=== PATIENT | male | born 1935 | race Caucasian/White ===

== ENCOUNTER 2017-08-05 09:20 | Inpatient (IN) | payer OTHER ==
[~2017-08-05] VITALS: Ht 167.6 cm; Wt 82.1 kg
--- NOTE | ~2017-08-05 | EKG ---
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 : 1935 Requested By: Glenda Patel Order Number: [id number] MD: Conrad Tomlinson Measurements Intervals [place] Rate: 103 P: 5 UT: 158 QRS: -23 QRSD: 101 T: 27 QT: 382 QTc: 500 Interpretive Statements Sinus tachycardia Nonspecific T wave abnormality Prolonged QT interval No previous ECG available for comparison Electronically Signed On 08-06-2017 14:33:08 SPA COORDINATOR by Conrad Tomlinson [email or web address] <ELECTRONICALLY SIGNED> By: Conrad Tomlinson MD, [facility] 08/06/17 1433 1154 1154 Conrad Tomlinson MD, [facility] /EPI
--- NOTE | ~2017-08-05 | EKG ---
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: : 1935 Requested By: Glenda Patel Order Number: [id number] MD: Conrad Tomlinson Measurements Intervals [place] Rate: 130 P: 16 NE: 136 QRS: -24 QRSD: 91 T: 13 QT: 310 QTc: 456 Interpretive Statements Sinus tachycardia Atrial premature complexes Borderline left axis deviation Nonspecific ST and T wave abnormality No previous ECG available for comparison Electronically Signed On 08-06-2017 14:29:02 LEAD BLENDER by Conrad Tomlinson [email or web address] <ELECTRONICALLY SIGNED> By: Conrad Tomlinson MD, [facility] 08/06/17 1429 3 3 Conrad Tomlinson MD, [facility] /EPI
--- NOTE | ~2017-08-05 | CATHLAB ---
[facility] [place] [address] INVASIVE PROCEDURE REPORT Name: SUSAN MELCHOR Room #: 358-P [facility] IN ..#: [id number] Admission: 08/05/17 Attend Phys: Anand Lassiter MD Discharge: Date of : 39 Date of Service: 08/10/17 1304 Report #: [id number] THIS REPORT FOR: //name// APPROVED REPORT Patient Details Patient Status: In-Patient Room #: The patient is a 82 year-old male Event Personnel Oral Turner Customer Care Consultant, Susana Pozo, Dereje Medeiros Penny, Wes RN Procedures Performed Art Access - R femoral artery* 66189 Initial Mod Sed Same Phys/QHP Gr5y [id number] Left Heart Cath w/or w/o Coronaries [id number] [facility] Hemostasis with Manual pressure Indication Syncope, Preoperative assessment for atrial myxoma excision Procedure Narrative The patient was brought urgently to the Cardiac Catheterization Laboratory and was prepped and draped in a sterile manner. The Right Groin^ was infiltrated with 1% Lidocaine subcutaneous anesthesia. A PINNACLE 4FR Sheath #[id number] sheath was inserted into the RFA^. Coronary angiography was performed using coronary diagnostic catheters. The right coronary system was accessed and visualized with a JR 4 catheter. The left coronary system was accessed and visualized with a JL 4 catheter. Hemostasis was obtained with manual pressure following sheath removal without any complications. The patient tolerated the procedure well and there were no complications associated with the procedure. There was no hematoma. Intraoperative Conscious Sedation Sedation start time: 10:57 Case end Time: 11:07 Versed 1.0 mg Fluoro Time: 2.03 minutes Dose: DAP 3156.60 cGycm2 456 mGy Contrast Type and Amount: Omnipaque 50 ml Coronary Angiography [facility] [place] [address] INVASIVE PROCEDURE REPORT Name: SUSAN MELCHOR Room #: 358-P [facility] IN ..#: [id number] Admission: 08/05/17 Attend Phys: Anand Lassiter MD Discharge: Date of : 37 Date of Service: 08/10/17 1304 Report #: [id number] The patient's coronary anatomy is right dominant. Diagnostic Cath Left Main Normal origin and caliber bifurcates into left anterior descending left circumflex free of significant high-grade disease LAD Small to moderate caliber type III vessel which courses in the anterior interventricular sulcus. In the proximal midportion there is an eccentric lesion that appears to be at least 75% stenotic. The LAD continues in the anterior interventricular call sulcus and a tortuous path terminating as a bifurcating vessel in the inferolateral apical region of the left ventricle Diagonal 1 Small-caliber vessel free of high-grade disease Circumflex Moderate caliber vessel of normal origin coursing in the AV groove posteriorly giving rise to a first and second lateral wall marginal branch. Terminates at the crux of the heart is a bifurcating small-caliber vessel it has luminal irregularities only. OM1 Small-caliber vessel with luminal irregularities in its course OM2 Small-caliber vessel with luminal irregularities in its course Right Coronary Moderate caliber to large caliber dominant vessel which has Oliver eccentric 30% plaque proximally. Then continues giving rise to a small RV marginal branch which is free of high-grade disease. The RCA proper continues posteriorly giving rise to a small to moderate caliber posterior descending artery and a small posterolateral branch. Only luminal irregularities are noted no high-grade obstructive lesions R PDA Small to moderate caliber vessel with luminal irregularities but no significant obstructive lesions noted Left Ventriculography Left Ventriculography was not performed. Hemodynamics The aortic pressure is 157/63 mmHg with a mean of 97 mmHg. Conclusion 1. Coronary artery disease, single vessel, involving the mid LAD 2. Normal [place] [address] INVASIVE PROCEDURE REPORT Name: SUSAN MELCHOR Room #: 358-P [facility] IN M.R.#: [id number] Admission: 08/05/17 Attend Phys: Anand Lassiter MD Discharge: Date of : 39 Date of Service: 08/10/17 1304 Report #: [id number] If the patient is to undergo excision of the myxoma then single vessel bypass to the LAD would be appropriate <ELECTRONICALLY SIGNED> By: Oral Turner MD 08/10/17 1304 1304 1304 Oral Turner MD /INF
--- NOTE | ~2017-08-05 | HC ---
[facility] [place] [address] CONSULTATION Name: SUSAN MELCHOR Room #: 358-P ADM IN M.R.#: [id number] Admission: 08/05/17 Attend Phys: Anand Lassiter MD Discharge: Date of : 37 Report #: [id number] THIS REPORT FOR: //name// CC: Enrico Ho TYPE OF REPORT: Infectious diseases consultation. REASON FOR CONSULTATION: I was asked to evaluate concerning E. coli bacteremia. HISTORY OF PRESENT ILLNESS: The patient is an 82-year-old rtw-Lukcqyl-exqyjtfx gentleman who transferred from [facility] with respiratory distress and chest pain. He has a history of stroke with right hemiparesis, longstanding with hypertension and chronic renal insufficiency. He had fallen over a week ago and was hospitalized at [facility]. I do not have the records from that hospitalization to review at this time. He was transferred to alf where he was there for several days and then presented on 08/05/2017 with the above symptoms. In the Emergency Room, he was hypoxic and tachycardic. CT scan of the chest identified basilar atelectasis and multiple PEs. His white count was elevated and blood cultures have revealed E. coli. Cultures were positive on the 2nd and again on the 4th. He has been on broad-spectrum antibiotic coverage. No documented fever. Complains of pain. Essentially all over, although he does note that he has a headache and abdominal discomfort. He was also found to have right lateral ankle and knee wounds. No purulent drainage. Bray catheter was placed and now has increased urine output. He also complains of right leg pain. Prior to his Bray catheter placement, he did have a bladder scan showing over 500 mL of retained urine. It is noted that when he fell, he injured his right arm and leg. REVIEW OF SYSTEMS: In addition to the above, he has had no cough or sputum production. He is on 1 liter of oxygen per nasal cannula. There has been no chills or sweats identified. No nausea, vomiting or diarrhea. He now has indwelling Bray catheter. He has no rashes or other decubiti noted. PAST MEDICAL HISTORY: Hypertension, hyperlipidemia, stroke with right-sided weakness, BPH, recent fall with rib fractures and herniorrhaphy. FAMILY HISTORY: Noncontributory. SOCIAL HISTORY: He is a past smoker with no significant alcohol intake. PHYSICAL EXAMINATION: VITAL SIGNS: He is afebrile and hemodynamically stable. GENERAL: He was alert and cooperative. He had fairly dense right-sided weakness, upper and lower extremities. SKIN: Had a small area of wound over the lateral aspect of his right knee and [address] [address] CONSULTATION Name: SUSAN MELCHOR Room #: 358-P [facility] IN .R.#: [id number] Admission: 08/05/17 Attend Phys: Anand Lassiter MD Discharge: Date of : 37 Report #: [id number] ankle. No surrounding cellulitis. HEENT: Unremarkable. NECK: Supple. LUNGS: Clear. HEART: Regular, without murmur. ABDOMEN: Soft. No definite mass or hepatosplenomegaly. Possible left CVA tenderness, although the patient was not consistent. There was a language barrier during the evaluation. External genitalia with indwelling Bray catheter. A 1+ edema in the right side arm and leg. LABORATORY STUDIES: Blood cultures positive for E. coli, resistant to quinolones and ampicillin, otherwise susceptible growth on 08/05/2017 and 08/07/2017. Urinalysis was unremarkable. Ultrasound of lower extremities was negative for DVT. Right upper extremity negative for DVT. CT scan of the chest showed several PEs and basilar atelectasis. Hemoglobin 9.1; platelet count 138,000 and white count was 20.4. Sodium 134, potassium 4.3, bicarbonate 21 and creatinine 1.6. IMPRESSION AND RECOMMENDATIONS: An 82-year-old with Escherichia coli bacteremia, high grade. I would be concerned about urinary tract source given his urinary outlet obstructive symptoms. Bray catheter was just placed yesterday. Other consideration would be biliary tract or a colon source. Doubt endocarditis, although with this high-grade bacteremia must also be concerned about such, would not typically be related to right-sided endocarditis. Unclear if he had central venous catheter at the time of his hospitalization at [facility]. This will need to be further evaluated. I did not find any evidence of thrombophlebitis on examination today. Infected aortic aneurysm of the abdomen would also be a consideration, although that would not typically be associated with pulmonary emboli. I would therefore recommend continuing antibiotic coverage with ceftriaxone. Image his abdomen further. Also, check echocardiogram. We will repeat his blood cultures, repeat his urinalysis and send off a urine culture and also check liver function test. <ELECTRONICALLY SIGNED> By: Matty Singh MD 08/09/17 0837 1724 2236 Matty Singh MD /nt
--- NOTE | ~2017-08-05 | HC ---
[facility] [place] [address] CONSULTATION Name: SUSAN MELCHOR Room #: 361-P [facility] IN M.R.#: [id number] Admission: 08/05/17 Attend Phys: Anand Lassiter MD Discharge: 08/23/17 Date of : 37 Report #: [id number] THIS REPORT FOR: //name// CC: Enrico Ho HISTORY OF PRESENT ILLNESS: The patient is an 82-year-old male. He apparently hospitalized a few days ago for a fall and abdominal pain. Subsequently noted to have 2 small pulmonary emboli in the right upper and lower lung in addition to rib fractures. Some encephalopathy ensued, felt to be due to sepsis and elevated lactate. I am asked to evaluate here currently because of a large right atrial mass which could represent a myxoma, tumor spread, clot. No history of any of this. There was a CT of the chest, which revealed emboli and there were no remarks made about the cardiac findings. There is bit of a language barrier here, but able to review the records and talk with the and the patient to some extent. Still having a fair amount of discomfort and dyspnea. He was treated with IV antibiotics and mental status has improved some on my understanding. He has been switched over to Pradaxa today, which I suspect would be appropriate. He has been on Lovenox. Would recommend anticoagulation for this myxomatous finding or this atrial mass depending on what the etiology of it is, either way would anticoagulate. Currently, he is on albuterol, Pradaxa, which was just initiated. Creatinine is 1.2. Levaquin IV, tamsulosin, potassium, piperacillin/tazobactam combo, fentanyl, oxycodone. PAST MEDICAL HISTORY: Apparently is positive for hypertension, hypercholesterolemia, but no previously documented coronary disease at least that I can get from the family. He does have the right rib fracture, right leg fracture previously, history of chronic renal disease, history of CVA with left-sided weakness, which was years ago, hernia. PAST SURGICAL HISTORY: No surgical history is obtained here. ALLERGIES: No known drug allergies. FAMILY HISTORY: According to the , there is not significant history of this. SOCIAL HISTORY: He is . His is present. No current alcohol or tobacco. He is retired. LABORATORY WORK: Creatinine 1.2, potassium 3.9, alkaline phosphatase 166. Troponins are negative. H and H is 8.1 and 24.1, white count 11.1, platelets 127. Vitamin B12 is high at 1296. MRSA is negative. CT of the abdomen and pelvis, suspect acute cholecystitis with mildly cholelithiasis. There is small amount of free fluid in the right pericolic gutter, bilateral small pleural effusions, moderate hiatal hernia, diverticulosis. There is widespread third [facility] [address] [place] [address] CONSULTATION Name: ERNST CHANGSUSAN Room #: 361-P DIS IN M.R.#: [id number] Admission: 08/05/17 Attend Phys: Anand Lassiter MD Discharge: 08/23/17 Date of : 37 Report #: [id number] spacing edema. Chest x-ray shows interstitial edema compatible with heart failure, left basilar infiltrate. PHYSICAL EXAMINATION: VITAL SIGNS: Blood pressure 148/80, pulse 70s. GENERAL: He is intermittently in right-sided discomfort which he waxes and wean significantly. HEENT: Eyes reveal xanthelasmas. Pharynx showed some dry mucous membranes. NECK: Shows preserved upstrokes without JVD or bruits. LUNGS: Prolonged expiratory phase, diminished in the right base. CARDIOVASCULAR: Distant heart tones, S1, S2. ABDOMEN: Diffusely tender, more tender in the right upper quadrant, slightly distended. EXTREMITIES: Reveal trace to 1+ edema. Distal pulses diminished. NEUROLOGIC: Nonfocal. SKIN: Warm and dry without xanthoma or ulcer. MUSCULOSKELETAL: Generalized arthritic changes. I did not ambulate him. ASSESSMENT: 1. 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 Other considerations could be clot and/or tumor spread (of unclear significance to this hospitalization). 2. Hypoxia with infiltrate. 3. Elevated lactate, possible sepsis. 4. Acute on chronic cholecystitis. 5. Hypertension. 6. Hypercholesterolemia. RECOMMENDATIONS AND PLAN: Discussed with Radiology, a gated cardiac CT with contrast may be able to visualize this atrial mass. 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 There is no history of this. Would continue with anticoagulation. At this point surgical eval of this gallbladder apparently is pending. Does not appear to be evidence of renal cell at least based on the tumor, based on the abdomen and pelvic CT scan, although significant edema and pericolic fluid is noted. We will discuss the above with Infectious Disease. In addition, we will continue to follow with you. Thank you for asking me to assist in the care of this patient. <ELECTRONICALLY SIGNED> By: Ottoniel Macias MD, FACC 08/29/17 1427 0953 1033 Ottoniel Macias MD, FACC /nt
--- NOTE | ~2017-08-05 | HC ---
[facility] [place] [address] CONSULTATION Name: SUSAN MELCHOR Room #: 358-P ADM IN M.R.#: [id number] Admission: 08/05/17 Attend Phys: Anand Lassiter MD Discharge: Date of : 37 Report #: [id number] THIS REPORT FOR: //name// CC: Enrico Ho DATE OF SERVICE: 08/05/2017 REFERRAL PHYSICIAN: Dr. Anand Lassiter. REASON FOR REFERRAL: Pulmonary embolus. HISTORY OF PRESENT ILLNESS: The patient is an 82-year-old male who presented to Emergency Room with an acute onset of chest pain, dyspnea. He was found to have pulmonary embolus. A pulmonary consultation was requested. The patient does not speak German. He speaks Occitan. According to records, he was recently hospitalized at [facility] several days ago following a fall in the bathtub. He sustained an injury to his right lower extremity. He was then discharged to [facility]. He was there just 2 days. On the day of admission, the patient had noticed acute onset of chest discomfort, shortness of breath. CT chest preliminary finding shows small pulmonary embolus. Otherwise, his dyspnea is stable. Denies any chest pain. Does have pain in the right lower extremity. The rest of the history is somewhat limited given language barrier. PAST MEDICAL HISTORY: Notable for an event as mentioned above, recent hospitalization following a fall at [facility], hypertension, hyperlipidemia, benign prostatic hypertrophy, a recent fall sustaining right rib fracture, right leg fracture, history of chronic renal disease, history of CVA with left-sided weakness 40 years ago. He has hernia. PAST SURGICAL HISTORY: Unknown. ALLERGIES: None noted. MEDICATIONS: From home are incomplete. FAMILY HISTORY: Unknown. [facility] [address] [place] [address] CONSULTATION Name: SUSAN MELCHOR Room #: 358-P [facility] IN [facility]#: [id number] Admission: 08/05/17 Attend Phys: Anand Lassiter MD Discharge: Date of : 37 Report #: [id number] SOCIAL HISTORY: He is . He had been living with his until recently. Has smoked in the past, but quit more than 10 years ago. Denies any alcohol use. He has children, lives in town. PHYSICAL EXAMINATION: GENERAL: He is awake, in no apparent distress. VITAL SIGNS: Temperature is 101.1 degrees Fahrenheit, pulse is 100, respiratory rate is 18, blood pressure is 120/67 mmHg and saturation 96%. HEENT: Normocephalic, atraumatic. NECK: Supple, without any lymphadenopathy or thyromegaly. CHEST: Breath sounds are fair due to poor effort, otherwise no obvious wheezes or rales. CARDIOVASCULAR: Normal S1, S2. No murmur or gallop. There is no JVD. There is no carotid bruit. Pulses are 2+/4+ bilaterally. ABDOMEN: Soft, nontender, no organomegaly or masses felt. GENITOURINARY: Deferred. RECTAL: Deferred. EXTREMITIES: No cyanosis or clubbing. Right lower extremity revealed bandage around the knee. 1+ edema noted on the right side. No edema noted in the left leg. NEUROLOGIC: Grossly intact. LABORATORY DATA: CT chest angiogram shows small pulmonary emboli seen in the right upper lobe, right lower lobe, small emboli seen in both bases. There is a 6.5 mm nodule seen in the right upper lobe. It is noncalcified. D-dimer was 10.1. Influenza A and B was negative. Venous Doppler of the ultrasound shows no evidence of DVT involving both lower extremities. Electrolytes revealed a sodium 138, potassium 3.7, chloride 103, CO2 of 21, BUN is 24, creatinine is 1.6. WBC 11,400, hemoglobin is 10.6, platelets are normal, no evidence of bandemia. Arterial blood gas revealed pH 7.44, pCO2 of 27, pO2 100. IMPRESSION: 1. Small multiple pulmonary embolus involving the right upper lobe, right lower lobe and both lower lobes. The patient does have risk factors with recent hospitalization along with fall. He has sustained fractures including right rib and apparently the right leg. The patient will be a candidate for anticoagulation for at least 6 months or longer. 2. Acute hypoxic respiratory failure. 3. Febrile illness. Etiology is unclear. It may be related to atelectasis, possible early infectious process including possible pneumonia. 4. Renal insufficiency, has a history of chronic kidney disease, not certain of the baseline creatinine. Need to follow renal function closely. 5. Elevated D-dimer due to venous thromboembolic disease. [address] [address] CONSULTATION Name: ERNST CHARLENESUSAN Room #: 358-P ADM IN ..#: [id number] Admission: 08/05/17 Attend Phys: Anand Lassiter MD Discharge: Date of : 37 Report #: [id number] 6. History of cerebrovascular accident approximately 4 years ago with right-sided weakness, now with fall sustaining right rib and right leg fracture. The patient may need rehab and possibly ongoing physical therapy. RECOMMENDATION: Agree with plans with anticoagulation. Heparin therapy for now. Once stable, we will consider switching to oral agent either Coumadin or Pradaxa. Duration therapy will be for at least 6 months, then reassess for whether he needs prolonged therapy or not based on his risk factors. I am not certain if the patient has pneumonia, but I think it is reasonable to start broad spectrum antibiotics. Follow up cultures, chest x-rays. If the patient is stable and afebrile along with normal leukocyte count, could consider discontinuing antibiotics. Thank you for this consultation. <ELECTRONICALLY SIGNED> By: Aaron Stinson MD 08/06/17 1737 1540 0038 Aaron Stinson MD /nt
--- NOTE | ~2017-08-05 | 2DMMODE ---
[facility] [address] [place] [address] 2 D/M-MODE ECHOCARDIOGRAM Name: SUSAN MELCHOR Room #: 358-P ADM IN M.R.#: [id number] Admission: 08/05/17 Attend Phys: Anand Lassiter MD Discharge: Date of : 39 Date of Service: 08/09/17 0926 Report #: [id number] THIS REPORT FOR: //name// APPROVED REPORT Study performed: 08/09/2017 08:24:50 EXAM: Comprehensive 2D, Doppler, and color-flow Echocardiogram Patient Location: Bedside Room #: 358 Status: routine BSA: 1.92 HR: 70 bpm BP: 139/70 mmHg Rhythm: NSR/Irregular Other Information Study Quality: Adequate Technically limited study due to lung artifact, body habitus. Indications Bacteremia, pulmonary embolism 2D Dimensions LVEF(%): 57.83 (>50%) IVSd: 9.58 (7-11mm) LVOT Diam: 22.29 (18-24mm) LVDd: 48.56 mm PWd: 10.57 (7-11mm) LVDs: 33.74 (25-40mm) Aortic Root: 41.21 mm [place]'s LVEF: 57.83 % Aortic Valve AoV Peak Chaz.: 2.29 m/s AO Peak Gr.: 20.99 mmHg LVOT Max P.72 mmHg LVOT Max V: 0.82 m/s FIDEL Vmax: 1.40 cm2 Mitral Valve E/A Ratio: 0.5 MV Decel. Time: 292.83 ms MV E Max Chaz.: 0.41 m/s MV A Chaz.: 0.80 m/s MV PHT: 84.92 ms [facility] [address] [place] [address] 2 D/M-MODE ECHOCARDIOGRAM Name: SUSAN MELCHOR Room #: 358-[facility] IN [facility].#: [id number] Admission: 08/05/17 Attend Phys: Anand Lassiter MD Discharge: Date of : 39 Date of Service: 08/09/17 0926 Report #: [id number] IVRT: 87.66 ms Pulmonary Vein P Vein S: 0.82 m/s P Vein A: 0.36 m/s P Vein D: 0.51 m/s P Vein A Dur.: 106.1 msec P Vein S/D Ratio: 1.61 Tricuspid Valve TR Peak Chaz.: 2.12 m/s TR Peak Gr.: 17.97 mmHg Left Ventricle The left ventricle is normal size. Regional wall motion is not well visualized but grossly normal. There is normal left ventricular wall thickness. Left ventricular systolic function is normal. LVEF is 55%. Mild diastolic dysfunction is present (impaired relaxation pattern). Right Ventricle The right ventricle is normal size. The right ventricular systolic function is normal. Atria Left atrium is mildly dilated. The right atrium size is normal. Large mass occupying most of right atrium, prolapsing across tricuspid annulus with cardiac cycle. Diffential considerations include right atrial myxoma, thrombus, or tumor (4.1cm x 5.8cm) Aortic Valve Aortic valve is calcified. Trace to mild aortic regurgitation. Mild aortic stenosis. Peak pressure gradient of 24mmHg and a mean of 14mmHg. Mitral Valve Mild mitral annular calcification. Trace mitral regurgitation. No evidence of mitral valve stenosis. Tricuspid Valve The tricuspid valve is normal in structure. Trace tricuspid regurgitation. Estimated PAP is 18mmHg plus the right atrial pressure. Pulmonic Valve Pulmonic valve is not well visualized. Great Vessels [facility] [address] [place] [address] 2 D/M-MODE ECHOCARDIOGRAM Name: SUSAN MELCHOR Room #: 358-P [facility] IN [facility].#: [id number] Admission: 08/05/17 Attend Phys: Anand Lassiter MD Discharge: Date of : 39 Date of Service: 08/09/17 0926 Report #: [id number] Aortic root is mildly dilated. Ascending aorta is not well visualized. IVC is not well visualized. Pericardium There is no pericardial effusion. Critical Notification Critical Value: Yes Physician Notified Date: 08/09/2017 Time: 09:25 <Conclusion> Left ventricular systolic function is normal. Regional wall motion is not well visualized but grossly normal. LVEF is 55%. Mild diastolic dysfunction Large mass occupying most of right atrium, prolapsing across tricuspid annulus with cardiac cycle. Diffential considerations include right atrial myxoma, thrombus, or tumor (4.1cm x 5.8cm) Aortic valve is calcified. Trace to mild aortic regurgitation. Mild aortic stenosis. Peak pressure gradient of 24mmHg and a mean of 14mmHg. Mild mitral annular calcification. Trace mitral regurgitation. There is no pericardial effusion. <ELECTRONICALLY SIGNED> By: Conrad Tomlinson MD, FACC 08/09/17925 5 5 Conrad Tomlinson MD, FACC /INF
--- NOTE | ~2017-08-05 | TEE ---
[facility] [address] TRANSESOPHAGEAL ECHOCARDIOGRAM Name: ERNST CHANGSUSAN Room #: 358-P [facility] IN .R.#: [id number] Admission: 08/05/17 Attend Phys: Anand Lassiter MD Discharge: Date of : 39 Date of Service: 08/10/17 0923 Report #: [id number] THIS REPORT FOR: //name// APPROVED REPORT Study performed: 08/10/2017 07:50:21 EXAM: Comprehensive 2D, Doppler, and color-flow Echocardiogram Patient Location: [facility] Room #: 358 BSA: 1.92 HR: 75 bpm BP: 139/70 mmHg Rhythm: NSR Other Information Study Quality: Good Indications Right atrial myxoma. Pulmonary embolism, bacteremia Echo Enhancing Agent Indication: Rule out Shunt Agent(s) / Amount(s) Used: Agitated Saline 6 cc Procedure After obtaining informed consent, patient underwent transesophageal echo in the [employer]. Type of Sedation : Conscious Sedation Sedation was administered by Susan Ye RN. Sedation was achieved intravenously with: Versed (3) Fentanyl (25) Transesophageal probe was inserted and advanced into esophagus without difficulty by Conrad Tomlinson MD. The JONES was performed without complications. Throughout the procedure, the blood pressure, pulse oximetry, cardiac rhythm, and rate were monitored. The patient tolerated the procedure without adverse effects. Recovery from conscious sedation was uneventful and vital signs were stable. Left Ventricle The left ventricle is normal size. There is normal left ventricular wall thickness. Left ventricular systolic function is normal. LVEF is [facility] [address] [place] [address] TRANSESOPHAGEAL ECHOCARDIOGRAM Name: SUSAN MELCHOR Room #: 358-P [facility] IN [facility].#: [id number] Admission: 08/05/17 Attend Phys: Anand Lassiter MD Discharge: Date of : 39 Date of Service: 08/10/17 0923 Report #: [id number] 55%. Right Ventricle The right ventricle is normal size. The right ventricular systolic function is normal. Atria Left atrium is mildly dilated. No masses or clots in left atrium or left atrial appendage. Right to left shunting noted with contrast bubble injection consistent with small PFO. The right atrium size is normal. 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 SVC and IVC appear normal. Aortic Valve Aortic valve is calcified. Probably bicuspid valve. Mild aortic regurgitation. Mild aortic stenosis. Mitral Valve The mitral valve is normal in structure. Trace to mild mitral regurgitation. Tricuspid Valve The tricuspid valve is normal in structure. Trace tricuspid regurgitation. Pulmonic Valve The pulmonary valve is normal in structure. Trace pulmonic regurgitation. Great Vessels The aortic root is normal in size. Mild atherosclerosis IVC is normal in size and collapses >50% with inspiration. Pericardium There is no pericardial effusion. Critical Notification Physician Notified <Conclusion> Left ventricular systolic function is normal. LVEF is 55%. Left atrium is mildly dilated. The right atrium size is normal. 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 SVC and IVC appear normal. Right to left shunting noted with contrast bubble injection consistent with small PFO. Aortic valve is calcified. Probably bicuspid valve. Mild aortic regurgitation. Mild aortic stenosis. The mitral valve is normal in structure. Trace to mild mitral regurgitation. There is no pericardial effusion. Mild aortic atherosclerosis <ELECTRONICALLY SIGNED> By: Conrad Tomlinson MD, [facility] 08/10/17922 2 2 Conrad Tomlinson MD, FACC /INF
--- NOTE | ~2017-08-05 | HC ---
[facility] [place] [address] CONSULTATION Name: ERNST CHANGSUSAN Room #: 361-P [facility] IN M.R.#: [id number] Admission: 08/05/17 Attend Phys: Anand Lassiter MD Discharge: 08/23/17 Date of : 39 Report #: [id number] THIS REPORT FOR: //name// CC: Enrico Ho DATE OF SERVICE: 08/18/2017 REQUESTING PHYSICIAN: Dr. Lassiter. CHIEF COMPLAINT: Atrial myxoma. HISTORY OF PRESENT ILLNESS: The patient is an 82-year-old male who presented to [facility] on 08/05/2017. The patient has had several different factors for his admission including sepsis, which is related to E. coli from bacteremia, possibly related to acute cholecystitis. The patient has undergone a percutaneous cholecystostomy tube placement by IR. Additionally, he has a right atrial myxoma. This was seen on JONES. Cardiothoracic surgery was consulted and they have decided to hold on the procedure as he is currently a poor surgical candidate due to his current functional capacity, they were to see him as an outpatient for further evaluation. The patient additionally had acute blood loss secondary to upper GI bleed due to his anticoagulation. He was changed to Protonix just recently b.i.d. He had a transfusion of 1 unit packed red blood cells, also found to have acute pulmonary embolism, which caused him to be on the anticoagulation. Additionally, he has had delirium and acute renal failure. Acute renal failure has improved. He is status post previous CVA, but this was approximately 40 years ago. The patient and spouse are Scottish speaking only. I discussed their care through the use of [employer]. The patient is currently without significant amounts of pain, although he does have some pain in his mid epigastric area. He denies significant dyspnea and appears to be calm and at rest at this time. PAST MEDICAL HISTORY: Significant for pulmonary embolism, right atrial myxoma, history of CVA with right partial hemiparesis, hypertension, hyperlipidemia, BPH, history of cigarette smoking approximately 40 years ago. SOCIAL HISTORY: Former smoker of cigars previously. No longer smoking, present with his spouse, daughter was able to be reached as well. MEDICATIONS AT HOME: Lipitor 20 mg daily, doxepin 10 mg at bedtime, Flomax 0.4 mg daily, ibuprofen, lidocaine, metoprolol 50 mg b.i.d. and MiraLax. ALLERGIES: No known drug allergies. [address] [address] CONSULTATION Name: ERNST CHANGSUSAN Room #: 361-P [facility] IN [facility].#: [id number] Admission: 08/05/17 Attend Phys: Anand Lassiter MD Discharge: 08/23/17 Date of : 39 Report #: [id number] CODE STATUS: Full code currently. FAMILY HISTORY: Noncontributory. PAST SURGICAL HISTORY: Unknown, not reviewed at this time. REVIEW OF SYSTEMS: GENERAL: Denies any significant weight loss, including weight gain or weight loss. Does ____ report fatigue. HEENT: Denies any visual changes. CARDIOVASCULAR: He does report some mild epigastric pain, but not significant chest pain, does have some mild edema. RESPIRATORY: Does report shortness of breath and occasional cough. ABDOMEN: Does report some abdominal pain as previously noted, does have a history of constipation. EXTREMITIES: Reports diffuse weakness. PHYSICAL EXAMINATION: VITAL SIGNS: Temperature 36.6, pulse 64, respirations 20, blood pressure 154/67, pulse ox 100%. GENERAL: He is alert, oriented to person, place at least. HEENT: No scleral icterus, no conjunctival injection. CARDIOVASCULAR: Regular rate and rhythm without murmur. LUNGS: Appear to be clear to auscultation at this time. ABDOMEN: He has diffuse tenderness to palpation, but mild. Does have diminished bowel sounds. LABORATORY DATA: Include hemoglobin 7.5, white blood cells 6.5, platelets 309, creatinine 0.7. ASSESSMENT AND PLAN: 1. Right atrial myxoma. The patient is not currently an excellent surgical candidate, though he may have improvement in the future. They are planning on pursuing mcc care. I have discussed this versus other additional options including palliative care options with both he and his spouse and his daughter. They are currently pursuing mcc at this time, but they are considering this. I did discuss the risk of surgery despite improvement in his functional status, considering his overall medical condition and the previous comorbidities. 2. Pulmonary embolism. Again, this coupled with his acute GI bleed, it contributes to the overall severity of his condition. He may benefit from IVC filter if they are pursuing maximal aggressive care. 3. Gastrointestinal bleed. Again, this is preventing patient from being on full anticoagulation, which leads him to risk of pulmonary embolism. Overall, this leads to a relatively poor prognosis, though if he has a potential recovery, as I discussed with him and his family, this still could be a very [facility] [address] [place] [place] [address] CONSULTATION Name: SUSAN MELCHOR Room #: 361-P [facility] IN M.R.#: [id number] Admission: 08/05/17 Attend Phys: Anand Lassiter MD Discharge: 08/23/17 Date of : 39 Report #: [id number] with regards to any recovery. 4. Escherichia coli bacteremia. Again, this is due to cholecystitis, status post cholecystostomy tube. Again, this overall contributes to his likelihood of being a good surgical candidate in the future. At this time, pursuing mcc to maintain a full code status, but they are considering these different interventions. I will go ahead and sign off at this point as I have explained these options to the family. Please reconsult or call me for any questions regarding this patient's care and if I can be of any further assistance. <ELECTRONICALLY SIGNED> By: Rogelio Ortiz DO 09/16/17 [id number] Rogelio Ortiz DO /nt
[2017-08-05 09:22] VITALS: BP 149/85
[2017-08-05 09:35] LABS: ABSOLUTE NEUTROPHILS 10.4 thou/uL (1.4-8.2); BASOPHILS 0.4 % (0.0-2.0); EOSINOPHILS 0.1 % (0.0-3.0); HEMATOCRIT 32.1 % (42.0-52.0); HEMOGLOBIN 10.6 gm/dL (14.0-18.0); LYMPHOCYTES 6.9 % (24.0-44.0); MCH 28.5 pg (26.0-34.0); MCHC 33.1 g/dL (28.0-37.0); MCV 86.2 fL (80.0-100.0); MONOCYTES 1.3 % (1.0-8.0); PLATELET COUNT 265 thou/uL (150-400); POLYS 91.3 % (36.0-66.0); RBC 3.73 mil/uL (4.50-6.00); WBC 11.4 thou/uL (4.0-11.0)
[2017-08-05 09:41] LABS: ANION GAP 14 mmol/L (7-16); BUN 24 mg/dL (7-18); CALCIUM 8.8 mg/dL (8.5-10.1); CHLORIDE 103 mmol/L (98-107); CO2 21 mmol/L (21-32); CREATININE 1.6 mg/dL (0.7-1.3); GLUCOSE 128 mg/dL (74-106); POTASSIUM 3.7 mmol/L (3.5-5.1); SODIUM 138 mmol/L (136-145)
[2017-08-05 09:42] LABS: BE(vivo) -4.7 mmol/L (-2 to +3); HCO3 18.3 mmol/L (22.0-26.0); PCO2 27.4 mmHg (35.0-45.0); PO2 448.5 mmHg (80.0-100.0); pH 7.442 (7.360-7.450); sO2 99.9 % (92.0-98.0)
[2017-08-05 09:49] LABS: TROPONIN-I < 0.04 ng/mL (<0.06)
[2017-08-05 11:56] LABS: APTT 30.6 Seconds (24.5-32.8); INR 1.2; PROTIME 12.6 Seconds (9.3-11.4)
[2017-08-05 12:56] VITALS: BP 121/67
[2017-08-05 13:26] VITALS: BP 150/74
[2017-08-05] MEDS ORDERED: COLACE100 MG PO (17:38)
[2017-08-05] MEDS ORDERED: LIPITOR 20 MG T20 M1 PO (17:38)
[2017-08-05] MEDS ORDERED: FLOMAX0.4 MG PO (17:41)
[2017-08-05] MEDS ORDERED: DOXEPIN 10 MG C10 M1 PO (17:41)
[2017-08-05] MEDS ORDERED: LIDODERM1 EACH TOP (17:42)
[2017-08-05] MEDS ORDERED: IBUPROFEN 600600 M1 PO (17:42)
[2017-08-05] MEDS ORDERED: MIRALAX17 GM PO (17:43)
[2017-08-05] MEDS ORDERED: LOPRESSOR50 PO (17:43)
[2017-08-05 19:13] VITALS: BP 117/62
[2017-08-06 00:03] VITALS: BP 142/45
[2017-08-06 03:30] VITALS: BP 166/82
[2017-08-06 05:16] LABS: HEMATOCRIT 28.3 % (42.0-52.0); HEMOGLOBIN 9.5 gm/dL (14.0-18.0); MCH 28.7 pg (26.0-34.0); MCHC 33.5 g/dL (28.0-37.0); MCV 85.6 fL (80.0-100.0); RBC 3.31 mil/uL (4.50-6.00); RDW 16.5 % (10.5-14.5); WBC 8.8 thou/uL (4.0-11.0)
[2017-08-06 05:24] LABS: CALCIUM 7.9 mg/dL (8.5-10.1); CREATININE 1.3 mg/dL (0.7-1.3); POTASSIUM 3.2 mmol/L (3.5-5.1)
[2017-08-06 07:34] VITALS: BP 104/48
[2017-08-06 11:47] VITALS: BP 101/57
[2017-08-06 15:16] VITALS: BP 119/79
[2017-08-06 20:00] VITALS: BP 97/69
[2017-08-07 03:30] VITALS: BP 123/61
[2017-08-07 04:07] LABS: CALCIUM 7.7 mg/dL (8.5-10.1); CREATININE 1.8 mg/dL (0.7-1.3); POTASSIUM 4.3 mmol/L (3.5-5.1)
[2017-08-07 05:18] LABS: HEMATOCRIT 25.2 % (42.0-52.0); HEMOGLOBIN 8.5 gm/dL (14.0-18.0); MCH 28.3 pg (26.0-34.0); MCHC 33.6 g/dL (28.0-37.0); MCV 84.4 fL (80.0-100.0); RBC 2.99 mil/uL (4.50-6.00); RDW 16.2 % (10.5-14.5)
[2017-08-07 06:44] LABS: URINE BILIRUBIN 2+ (Negative); URINE BLOOD NEGATIVE (Negative); URINE CLARITY SL CLOUDY; URINE COLOR BROWN; URINE GLUCOSE-RANDOM* NEGATIVE (Negative); URINE KETONES TRACE (Negative); URINE LEUKOCYTES NEGATIVE (Negative); URINE NITRITE NEGATIVE (Negative); URINE PROTEIN (DIPSTICK) 1+ (Negative); URINE SPECIFIC GRAVITY >= 1.030 (1.005-1.035)
[2017-08-07 06:47] LABS: ICTOTEST (BILI CONFIRMATORY) Positive (Negative)
[2017-08-07 06:54] LABS: AMORPHOUS URATES Moderate /LPF (None Seen); COARSE GRANULAR CASTS 0-3 Few /LPF (None Seen); SQUAMOUS 4-10 Moderate /LPF (0-3)
[2017-08-07 06:55] LABS: BACTERIA 1-9 Few /HPF (None Seen); URINE RBC 0-2 Rare /HPF (0-2); URINE WBC 0-5 Rare /HPF (0-5)
[2017-08-07 07:49] VITALS: BP 134/69
[2017-08-07 11:04] VITALS: BP 127/63
[2017-08-07 15:26] VITALS: BP 143/84
[2017-08-07 20:00] VITALS: BP 137/78
[2017-08-07 23:35] VITALS: BP 146/80
[2017-08-08 04:00] VITALS: BP 151/80
[2017-08-08 06:56] LABS: HEMATOCRIT 27.1 % (42.0-52.0); HEMOGLOBIN 9.1 gm/dL (14.0-18.0); MCH 28.2 pg (26.0-34.0); MCHC 33.5 g/dL (28.0-37.0); MCV 84.1 fL (80.0-100.0); RBC 3.23 mil/uL (4.50-6.00); RDW 16.9 % (10.5-14.5); WBC 20.4 thou/uL (4.0-11.0)
[2017-08-08 07:02] LABS: CALCIUM 7.4 mg/dL (8.5-10.1); CREATININE 1.6 mg/dL (0.7-1.3); POTASSIUM 4.3 mmol/L (3.5-5.1)
[2017-08-08 08:19] VITALS: BP 111/61
[2017-08-08 13:19] VITALS: BP 137/74
[2017-08-08 16:38] VITALS: BP 132/75
[2017-08-08 19:01] LABS: URINE BILIRUBIN NEGATIVE (Negative); URINE BLOOD 1+ (Negative); URINE CLARITY CLEAR; URINE COLOR YELLOW; URINE GLUCOSE-RANDOM* NEGATIVE (Negative); URINE KETONES NEGATIVE (Negative); URINE LEUKOCYTES NEGATIVE (Negative); URINE NITRITE NEGATIVE (Negative); URINE PROTEIN (DIPSTICK) NEGATIVE (Negative)
[2017-08-08 19:07] LABS: BACTERIA 1-9 Few /HPF (None Seen); CASTS None Seen /LPF (None Seen); CRYSTALS None Seen /LPF (None Seen); SQUAMOUS None Seen /LPF (0-3); URINE RBC 3-10 Few /HPF (0-2); URINE WBC 0-5 Rare /HPF (0-5)
[2017-08-08 19:20] VITALS: BP 129/69
[2017-08-09 03:50] VITALS: BP 139/70
[2017-08-09 06:25] LABS: HEMATOCRIT 24.4 % (42.0-52.0); HEMOGLOBIN 8.1 gm/dL (14.0-18.0); MCH 28.1 pg (26.0-34.0); MCHC 33.3 g/dL (28.0-37.0); MCV 84.2 fL (80.0-100.0); PLATELET COUNT 127 thou/uL (150-400); RDW 16.6 % (10.5-14.5); WBC 11.1 thou/uL (4.0-11.0)
[2017-08-09 06:45] LABS: ALBUMIN 1.5 g/dL (3.4-5.0); CALCIUM 7.2 mg/dL (8.5-10.1); CREATININE 1.2 mg/dL (0.7-1.3); POTASSIUM 3.9 mmol/L (3.5-5.1); TOTAL BILIRUBIN 0.7 mg/dL (<0.1-1.0); TOTAL PROTEIN 4.9 g/dL (6.4-8.2)
[2017-08-09 07:34] LABS: METAMYELOCYTES 1 %
[2017-08-09 07:35] LABS: ANISOCYTOSIS 1+
[2017-08-09 07:36] LABS: MICROCYTES 1+; OVALOCYTES FEW
[2017-08-09 08:27] VITALS: BP 148/80
[2017-08-09 17:41] VITALS: BP 140/82
[2017-08-09 20:00] VITALS: BP 138/71
[2017-08-10 04:00] VITALS: BP 146/77
[2017-08-10 06:13] LABS: HEMATOCRIT 21.5 % (42.0-52.0); HEMOGLOBIN 7.1 gm/dL (14.0-18.0); MCH 27.9 pg (26.0-34.0); MCHC 33.2 g/dL (28.0-37.0); RBC 2.56 mil/uL (4.50-6.00); RDW 16.4 % (10.5-14.5); WBC 13.4 thou/uL (4.0-11.0)
[2017-08-10 06:35] LABS: CALCIUM 7.2 mg/dL (8.5-10.1); CREATININE 0.9 mg/dL (0.7-1.3); POTASSIUM 3.4 mmol/L (3.5-5.1)
[2017-08-10 14:19] LABS: HEMATOCRIT 21.7 % (42.0-52.0); HEMOGLOBIN 7.2 gm/dL (14.0-18.0); MCH 27.8 pg (26.0-34.0); MCV 84.3 fL (80.0-100.0); RBC 2.58 mil/uL (4.50-6.00); RDW 16.3 % (10.5-14.5); WBC 18.4 thou/uL (4.0-11.0)
[2017-08-10 19:02] VITALS: BP 141/73
[2017-08-11 04:13] VITALS: BP 141/66
[2017-08-11 06:11] LABS: RBC 2.44 mil/uL (4.50-6.00)
[2017-08-11 06:12] LABS: HEMATOCRIT 20.7 % (42.0-52.0); HEMOGLOBIN 6.9 gm/dL (14.0-18.0); MCH 28.2 pg (26.0-34.0); MCHC 33.1 g/dL (28.0-37.0); RDW 16.9 % (10.5-14.5); WBC 17.9 thou/uL (4.0-11.0)
[2017-08-11 06:21] LABS: CALCIUM 7.2 mg/dL (8.5-10.1); CREATININE 0.9 mg/dL (0.7-1.3); POTASSIUM 3.4 mmol/L (3.5-5.1)
[2017-08-11 06:23] LABS: INR 1.2
[2017-08-11 06:32] LABS: APTT 48.8 Seconds (24.5-32.8)
[2017-08-11 08:31] VITALS: BP 122/64
[2017-08-11 08:54] LABS: ALBUMIN 1.4 g/dL (3.4-5.0); DIRECT BILIRUBIN 0.3 mg/dL (<0.1-0.3); TOTAL BILIRUBIN 0.6 mg/dL (<0.1-1.0); TOTAL PROTEIN 4.6 g/dL (6.4-8.2)
[2017-08-11 09:08] LABS: HEMATOCRIT 20.6 % (42.0-52.0); HEMOGLOBIN 6.9 gm/dL (14.0-18.0)
[2017-08-11 11:01] VITALS: BP 122/64
[2017-08-11 12:03] VITALS: BP 148/71
[2017-08-11 18:45] LABS: HEMATOCRIT 23.5 % (42.0-52.0); HEMOGLOBIN 7.9 gm/dL (14.0-18.0)
[2017-08-11 20:00] VITALS: BP 136/82
[2017-08-12 04:00] VITALS: BP 129/70
[2017-08-12 07:35] VITALS: BP 142/73
[2017-08-12 09:03] LABS: HEMATOCRIT 23.2 % (42.0-52.0); HEMOGLOBIN 7.7 gm/dL (14.0-18.0); MCH 28.5 pg (26.0-34.0); MCHC 33.1 g/dL (28.0-37.0); MCV 85.9 fL (80.0-100.0); RBC 2.7 mil/uL (4.50-6.00); RDW 16.3 % (10.5-14.5)
[2017-08-12 10:41] LABS: CALCIUM 7.5 mg/dL (8.5-10.1); CREATININE 0.8 mg/dL (0.7-1.3); POTASSIUM 3.7 mmol/L (3.5-5.1)
[2017-08-12 16:05] VITALS: BP 212/93
[2017-08-12 19:20] VITALS: BP 168/82
[2017-08-13] VITALS: BP 153/84
[2017-08-13 04:35] VITALS: BP 188/92
[2017-08-13 05:31] LABS: HEMATOCRIT 21.8 % (42.0-52.0); HEMOGLOBIN 7.2 gm/dL (14.0-18.0); MCH 28.6 pg (26.0-34.0); MCHC 33.3 g/dL (28.0-37.0); MCV 85.7 fL (80.0-100.0); RBC 2.54 mil/uL (4.50-6.00); RDW 16.9 % (10.5-14.5)
[2017-08-13 08:28] VITALS: BP 132/77
[2017-08-13 11:38] VITALS: BP 123/67
[2017-08-13 15:42] VITALS: BP 133/68
[2017-08-13 19:30] VITALS: BP 139/77
[2017-08-14 03:30] VITALS: BP 165/84
[2017-08-14 16:18] VITALS: BP 139/64
[2017-08-14 20:00] VITALS: BP 157/79
[2017-08-15 03:10] VITALS: BP 145/77
[2017-08-15 07:21] VITALS: BP 144/68
[2017-08-15 10:32] LABS: HEMATOCRIT 21.8 % (42.0-52.0); HEMOGLOBIN 7.4 gm/dL (14.0-18.0); MCHC 33.9 g/dL (28.0-37.0); MCV 85.7 fL (80.0-100.0); RBC 2.55 mil/uL (4.50-6.00); WBC 8.4 thou/uL (4.0-11.0)
[2017-08-15 11:20] VITALS: BP 158/73
[2017-08-15 15:52] VITALS: BP 164/69
[2017-08-15 20:00] VITALS: BP 170/81
[2017-08-16 04:00] VITALS: BP 146/73
[2017-08-16 06:20] LABS: HEMATOCRIT 22.9 % (42.0-52.0); HEMOGLOBIN 7.6 gm/dL (14.0-18.0); MCH 28.5 pg (26.0-34.0); MCHC 33.2 g/dL (28.0-37.0); MCV 85.9 fL (80.0-100.0); RBC 2.67 mil/uL (4.50-6.00); WBC 8.3 thou/uL (4.0-11.0)
[2017-08-16 08:15] VITALS: BP 135/76
[2017-08-16 16:13] VITALS: BP 167/73
[2017-08-16 20:00] VITALS: BP 158/78
[2017-08-17 04:00] VITALS: BP 144/67
[2017-08-17 07:51] VITALS: BP 146/57
[2017-08-17 10:47] LABS: HEMOGLOBIN 8.2 gm/dL (14.0-18.0); MCH 28.8 pg (26.0-34.0); MCV 87.5 fL (80.0-100.0); RBC 2.85 mil/uL (4.50-6.00); WBC 7.7 thou/uL (4.0-11.0)
[2017-08-17 15:56] VITALS: BP 170/85
[2017-08-18 04:02] VITALS: BP 131/62
[2017-08-18 05:34] LABS: HEMATOCRIT 22.3 % (42.0-52.0); HEMOGLOBIN 7.5 gm/dL (14.0-18.0); MCHC 33.8 g/dL (28.0-37.0); MCV 85.9 fL (80.0-100.0); RBC 2.59 mil/uL (4.50-6.00); RDW 17.8 % (10.5-14.5); WBC 6.5 thou/uL (4.0-11.0)
[2017-08-18 05:48] LABS: CALCIUM 7.3 mg/dL (8.5-10.1); CREATININE 0.7 mg/dL (0.7-1.3)
[2017-08-18 08:51] VITALS: BP 142/72
[2017-08-18 16:17] VITALS: BP 153/84
[2017-08-18 19:45] VITALS: BP 154/67
[2017-08-19 00:50] VITALS: BP 116/72
[2017-08-19 04:15] VITALS: BP 151/75
[2017-08-19 17:03] VITALS: BP 151/75
[2017-08-19 17:13] VITALS: BP 112/54
[2017-08-19 19:45] VITALS: BP 156/76
[2017-08-20 03:55] VITALS: BP 144/73
[2017-08-20 04:39] LABS: HEMATOCRIT 22.7 % (42.0-52.0); HEMOGLOBIN 7.7 gm/dL (14.0-18.0); MCH 29.1 pg (26.0-34.0); MCHC 33.8 g/dL (28.0-37.0); MCV 86.1 fL (80.0-100.0); RBC 2.64 mil/uL (4.50-6.00); WBC 4.6 thou/uL (4.0-11.0)
[2017-08-20 04:50] LABS: CALCIUM 7.4 mg/dL (8.5-10.1); CREATININE 0.8 mg/dL (0.7-1.3); POTASSIUM 3.4 mmol/L (3.5-5.1)
[2017-08-20 07:45] VITALS: BP 159/77
[2017-08-20 11:12] VITALS: BP 162/75
[2017-08-20 15:18] VITALS: BP 140/62
[2017-08-20 19:30] VITALS: BP 147/74
[2017-08-21 04:20] VITALS: BP 151/62
[2017-08-21 07:03] LABS: HEMATOCRIT 22.7 % (42.0-52.0); HEMOGLOBIN 7.5 gm/dL (14.0-18.0); MCH 28.7 pg (26.0-34.0); MCHC 33.2 g/dL (28.0-37.0); MCV 86.4 fL (80.0-100.0); RBC 2.63 mil/uL (4.50-6.00); RDW 17.9 % (10.5-14.5); WBC 4.3 thou/uL (4.0-11.0)
[2017-08-21 07:12] LABS: CALCIUM 7.4 mg/dL (8.5-10.1); CREATININE 0.8 mg/dL (0.7-1.3); POTASSIUM 3.2 mmol/L (3.5-5.1)
[2017-08-21 08:28] VITALS: BP 121/56
[2017-08-21 11:47] VITALS: BP 145/73
[2017-08-21 16:12] VITALS: BP 160/78
[2017-08-21 20:00] VITALS: BP 166/75
[2017-08-22 05:36] VITALS: BP 131/75
[2017-08-22 17:22] VITALS: BP 166/71
[2017-08-22 19:10] VITALS: BP 165/85
[2017-08-23 04:30] VITALS: BP 154/75
[2017-08-23 08:13] VITALS: BP 148/77
[2017-08-23] MEDS ORDERED: DUONEB 2.5-0.5 M3 ML INH (13:43)
[2017-08-23] MEDS ORDERED: KEFLEX500 M1 PO (13:43)
[2017-08-23] MEDS ORDERED: MUCINEX600 MG PO (13:44)
[2017-08-23] MEDS ORDERED: PROTONIX40 M1 PO (13:44)
[2017-08-23] MEDS ORDERED: PERCOCET PO (13:44)
== END 2017-08-23 15:53 | DRG 853 ==
LOC: ER 09:20 → EROBS 12:05 → 3W 12:05
PROVIDERS: Emergency Medicine; Hospitalist; Internal Medicine; Internal Medicine Pulmonary Disease; Nurse Practitioner; Nurse Practitioner Adult Health; Nurse Practitioner Gerontology; Specialist
PROC: 02H633Z Insertion of Infusion Device into Right Atrium, Percutaneous Approach (ICD-10-PCS; principal; 2017-08-10)
PROC: 4A023N7 Measurement of Cardiac Sampling and Pressure, Left Heart, Percutaneous Approach (ICD-10-PCS; principal; 2017-08-10)
PROC: B2111ZZ Fluoroscopy of Multiple Coronary Arteries using Low Osmolar Contrast (ICD-10-PCS; principal; 2017-08-10)
PROC: B2151ZZ Fluoroscopy of Left Heart using Low Osmolar Contrast (ICD-10-PCS; principal; 2017-08-10)
PROC: 0F9430Z Drainage of Gallbladder with Drainage Device, Percutaneous Approach (ICD-10-PCS; 2017-08-11)
PROC: 30233N1 Transfusion of Nonautologous Red Blood Cells into Peripheral Vein, Percutaneous Approach (ICD-10-PCS; 2017-08-11)
PROC: 06H03DZ Insertion of Intraluminal Device into Inferior Vena Cava, Percutaneous Approach (ICD-10-PCS; 2017-08-20)
DX: A41.9 Sepsis, unspecified organism (principal); J69.0 Pneumonitis due to inhalation of food and vomit; N17.0 Acute kidney failure with tubular necrosis; J96.01 Acute respiratory failure with hypoxia; I26.99 Other pulmonary embolism without acute cor pulmonale; G93.40 Encephalopathy, unspecified; I69.351 Hemiplegia and hemiparesis following cerebral infarction affecting right dominant side; D62 Acute posthemorrhagic anemia; K92.2 Gastrointestinal hemorrhage, unspecified; E87.2 Acidosis; K80.12 Calculus of gallbladder with acute and chronic cholecystitis without obstruction; N40.0 Benign prostatic hyperplasia without lower urinary tract symptoms; I10 Essential (primary) hypertension; D15.1 Benign neoplasm of heart; R26.9 Unspecified abnormalities of gait and mobility; I25.10 Atherosclerotic heart disease of native coronary artery without angina pectoris; B96.20 Unspecified Escherichia coli [E. coli] as the cause of diseases classified elsewhere; E78.00 Pure hypercholesterolemia, unspecified; F03.90 Unspecified dementia, unspecified severity, without behavioral disturbance, psychotic disturbance, mood disturbance, and anxiety; F32.9 Major depressive disorder, single episode, unspecified; Z23 Encounter for immunization; Z79.899 Other long term (current) drug therapy; Z87.891 Personal history of nicotine dependence; Z87.81 Personal history of (healed) traumatic fracture
CPT/HCPCS: 10779; 10879; 27000

== ENCOUNTER 2017-08-29 09:46 | Emergency (ER) | payer OTHER ==
[~2017-08-29] VITALS: Ht 165.1 cm; Wt 77.1 kg
[~2017-08-29 09:46] MED LIST: COLACE100 MG PO; DOXEPIN 10 MG C10 M1 PO; DUONEB 2.5-0.5 M3 ML INH; FLOMAX0.4 MG PO; IBUPROFEN 600600 M1 PO; KEFLEX500 M1 PO; LIDODERM1 EACH TOP; LIPITOR 20 MG T20 M1 PO; LOPRESSOR50 PO; MIRALAX17 GM PO; MUCINEX600 MG PO; PERCOCET PO; PROTONIX40 M1 PO
[2017-08-29 09:47] VITALS: BP 115/73
[2017-08-29 10:30] LABS: ABSOLUTE NEUTROPHILS 3.6 thou/uL (1.4-8.2); BASOPHILS 0.8 % (0.0-2.0); EOSINOPHILS 2.9 % (0.0-3.0); HEMATOCRIT 25.9 % (42.0-52.0); HEMOGLOBIN 8.6 gm/dL (14.0-18.0); LYMPHOCYTES 18.6 % (24.0-44.0); MCH 28.8 pg (26.0-34.0); MCHC 33.3 g/dL (28.0-37.0); MCV 86.6 fL (80.0-100.0); MONOCYTES 10.3 % (1.0-8.0); PLATELET COUNT 146 thou/uL (150-400); POLYS 67.4 % (36.0-66.0); RDW 17.4 % (10.5-14.5); WBC 5.4 thou/uL (4.0-11.0)
[2017-08-29 10:33] LABS: CALCIUM 8.3 mg/dL (8.5-10.1); CREATININE 1.2 mg/dL (0.7-1.3)
[2017-08-29 10:39] LABS: ALBUMIN 2.4 g/dL (3.4-5.0); TOTAL BILIRUBIN 0.7 mg/dL (<0.1-1.0); TOTAL PROTEIN 6.6 g/dL (6.4-8.2)
[2017-08-29 11:03] LABS: URINE BLOOD 3+ (Negative); URINE GLUCOSE-RANDOM* NEGATIVE (Negative); URINE KETONES NEGATIVE (Negative); URINE LEUKOCYTES-REFLEX NEGATIVE (Negative); URINE NITRITE-REFLEX NEGATIVE (Negative); URINE PROTEIN (DIPSTICK) 2+ (Negative); URINE SPECIFIC GRAVITY >= 1.030 (1.005-1.035); URINE UROBILINOGEN 0.2 E.U./dl (0.2-1.0)
[2017-08-29 11:05] LABS: URINE COLOR DARK YELLOW
[2017-08-29 11:06] LABS: ICTOTEST (BILI CONFIRMATORY) Negative (Negative); URINE BILIRUBIN NEGATIVE (Negative); URINE CLARITY SL CLOUDY
[2017-08-29 11:16] LABS: CASTS None Seen /LPF (None Seen); MUCUS >6 Heavy strn/LPF (None Seen); SQUAMOUS 0-3 Few /LPF (0-3)
[2017-08-29 11:17] LABS: URINE RBC >20 Many /HPF (0-2); URINE WBC-REFLEX 0-5 Rare /HPF (0-5)
[2017-08-29 11:18] LABS: BACTERIA-REFLEX 1-9 Few /HPF (None Seen); CALCIUM OXALATE 0-3 Few /LPF (None Seen)
[2017-08-29 14:00] VITALS: BP 117/58
[2017-08-30 05:10] LABS: HEMATOCRIT 24.6 % (42.0-52.0); HEMOGLOBIN 8.1 gm/dL (14.0-18.0); MCH 28.5 pg (26.0-34.0); MCHC 32.9 g/dL (28.0-37.0); MCV 86.8 fL (80.0-100.0); RBC 2.84 mil/uL (4.50-6.00); RDW 17.5 % (10.5-14.5); WBC 5.7 thou/uL (4.0-11.0)
[2017-08-30 05:14] LABS: CALCIUM 7.9 mg/dL (8.5-10.1); CREATININE 1.1 mg/dL (0.7-1.3)
[2017-08-30 07:01] VITALS: BP 109/58
[2017-08-30 08:27] VITALS: BP 92/53
[2017-08-30 10:15] VITALS: BP 113/54
[2017-08-30 15:26] VITALS: BP 117/60
== END 2017-08-30 15:53 | disposition still patient (30) ==
LOC: ER 09:46 → EROBS 13:16 → ER 13:16 → EROBS 08-30 15:53
PROVIDERS: Hospitalist; Physician Assistant
DX: R10.11 Right upper quadrant pain (principal); R11.2 Nausea with vomiting, unspecified; D64.9 Anemia, unspecified; Z90.49 Acquired absence of other specified parts of digestive tract; Z60.5 Target of (perceived) adverse discrimination and persecution; I10 Essential (primary) hypertension; E78.5 Hyperlipidemia, unspecified; N40.0 Benign prostatic hyperplasia without lower urinary tract symptoms